=== PATIENT | female | born 1950 | race Caucasian/White ===

== ENCOUNTER 2017-04-07 06:54 | Day surgery (SDC) | payer OTHER ==
[2017-04-07] VITALS (7 sets, daily range): BP systolic 117–147; BP diastolic 62–74; PULSE 64–76; RESP 13–23; Ht 160 cm; Wt 83.0 kg
[~2017-04-07] VITALS: Ht 160 cm; Wt 83.0 kg
[~2017-04-07 06:54] MED LIST: ALBU8.5H3 IH; ASPI-535 PO; BECL8.7A5 IH; DICL50TA2 PO; GLIP-95 PO; MEDICAL MARIJUANA; METF1000 PO; MEVA40 PO; PIOG30TA19 PO; TRAM50TA2 PO
[2017-04-07] MEDS ORDERED: SODIUM BICARBONATE (IV ADD) 50 ML ONE (07:01)
[2017-04-07] MEDS ORDERED: LIDOCAINE 2% (SDV) 5 ML INJ ONE ×2 (07:02→08:10)
--- NOTE | 2017-04-07 07:34 | HPN ---
Date/Time of Note Date/Time of Note DATE: 04/07/17 TIME: 07:34 Interval H&P Admission Note Pt. seen H&P reviewed: No system changes MATHEW SALAZAR MD Apr 07, 2017 07:34
[2017-04-07] MEDS ORDERED: CYCLOPENTOLATE 2% 2 ML OPH RIGHT EYE SCH (08:00)
[2017-04-07] MEDS ORDERED: NEPAFENAC 0.1% 3 ML OPH RIGHT EYE SCH (08:00)
[2017-04-07] MEDS ORDERED: PHENYLephrine 10% 5 ML OPH RIGHT EYE SCH (08:00)
[2017-04-07] MEDS ORDERED: MOXIFLOXACIN 0.5% 3 ML OPH RIGHT EYE SCH (08:00)
[2017-04-07] MEDS ORDERED: PROPOFOL 40 ML ONE (08:10)
[2017-04-07] MEDS ORDERED: FENTAnyl 50 MCG/ML VIAL ONE (08:10)
[2017-04-07] MEDS ORDERED: FLOV44 INHALATION (08:15)
[2017-04-07] MEDS ORDERED: GABA300C16 PO (08:15)
[2017-04-07] MEDS ORDERED: ALBU18HF INHALATION (08:15)
[2017-04-07] MEDS ORDERED: CARBACHOL 0.01% 1.5 ML OPH INJ ONE (08:33)
[2017-04-07] MEDS ORDERED: LIDOCAINE 1% (MPF) 5 ML VIAL INJ ONE (08:55)
[2017-04-07] MEDS ORDERED: PHENYLephrine 10% 5 ML OPH OPER ONE (08:55)
[2017-04-07] MEDS ORDERED: TETRACAINE 0.5% 4 ML OPH OPER ONE (08:55)
[2017-04-07] MEDS ORDERED: MIDAZOLAM 1 MG/ML 2 ML INJ ONE (09:29)
[2017-04-07] MEDS ORDERED: TIMOLOL 0.5% 5 ML OPH RIGHT EYE ONE (09:35)
--- NOTE | 2017-04-07 09:52 | OPR ---
Date/Time of Note Date/Time of Note DATE: 04/07/17 TIME: 09:50 Operative Report Preoperative Diagnosis cataract right eye Postoperative Diagnosis same Operation/Procedure Performed removal of cataract with implantation of intraocular lens Surgeon: MATHEW SALAZAR MD Anesthesia Type: MAC Estimated Blood Loss: none Transfusion Required: no Specimen: none Grafts/Implants: none Complications: no MATHEW SALAZAR MD Apr 07, 2017 09:51
[2017-04-07] MEDS ORDERED: ONDANSETRON 4 MG INJ IV PRN (11:00)
[2017-04-07] MEDS ORDERED: traMADol 50 MG TAB PO PRN (11:00)
--- NOTE | 2017-04-07 21:00 | OPR ---
DATE OF OPERATION: 04/07/2017 SURGEON: Brooklynn Valdez MD TELECOMMUNICATION SYSTEMS DESIGNER: None. ANESTHESIOLOGIST: * PREOPERATIVE DIAGNOSIS: Senile nuclear sclerotic cataract, left eye. POSTOPERATIVE DIAGNOSIS: Senile nuclear sclerotic cataract, left eye. OPERATION: Kelman phacoemulsification with implantation of intraocular lens, left eye. PROCEDURE: Following standard preparation and draping of the patient, an aspirating lid speculum was placed for immobilization of the lids. A Superblade incision was made for access into the anterior chamber. Approximately 0.5 ml of 1% unpreserved Xylocaine was instilled into the anterior chamber, and after approximately 15 seconds, this was replaced with Viscoat. A clear corneal incision was then made using the 3.2 mm keratome, following which an anterior circular capsulorrhexis was made. The major portion of the lens cortex and nucleus was then dislocated from the capsular bag using hydrodissection. The KPE tip was introduced into the eye, and controlling movements of the lens with a two-handed technique, the major portion of the lens cortex and nucleus was removed, maintaining the lens in the plane of the iris. The remaining cortical material was removed via the irrigating-aspirating instrument. The capsular bag and the anterior chamber were re-formed using Viscoat. The proper power lens was then placed within the capsular bag. The viscoelastic was then removed from the eye and the eye re-formed with balanced salt solution. One 10-0 Vicryl suture was then used to ensure closure of the corneal incision. The eye was re-formed to normal pressure using balanced salt solution. The eye and cul-de-sacs were now simply flooded with 5% Betadine solution. Dictated By: Brooklynn Valdez MD /[email or web address]/fredis /Document#: [id number]
[2017-04-07] MEDS ORDERED: TIMOLOL 0.5% 5 ML OPH ONE (23:46)
[2017-04-07] MEDS ORDERED: BUPIVACAINE 0.75% (MPF) 10 ML INJ ONE (23:46)
[2017-04-07] MEDS ORDERED: EPINEPHrine 1 MG INJ ONE (23:46)
[2017-04-07] MEDS ORDERED: LIDOCAINE 1% (MPF) 10 ML INJ ONE (23:46)
== END 2017-04-07 11:02 | disposition home or self-care (01) ==
LOC: SDS 06:54
PROVIDERS: ATTEND Ophthalmology
DX: H25.11 Age-related nuclear cataract, right eye (principal); E11.9 Type 2 diabetes mellitus without complications; J44.9 Chronic obstructive pulmonary disease, unspecified
CPT/HCPCS: 66984; 82962; J0171; J2250; J3010; V2632

== ENCOUNTER → 2017-08-20 | Outpatient (CLI) | END | disposition home or self-care (01) ==